=== PATIENT | female | born 1970 | race American Indian/Alaskan Native ===

== ENCOUNTER 2016-10-19 18:23 | Emergency (ER) | payer OTHER ==
[2016-10-19 18:23] VITALS: BMI 22.4
[2016-10-19 18:32] VITALS: BP 127/75; PULSE 65; RESP 18; TEMP 97.5; O2SAT 100
[2016-10-19] MEDS ORDERED: Sodium Chloride 0.9% 1,000 ML IV STA (18:53)
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
[2016-10-19] MEDS ORDERED: Oxycodone/Acetaminophen 5/325 mg Tab ONE (22:15)
[2016-10-19] MEDS ORDERED: Oxycodone/Acetaminophen 5/325 mg Tab PO STA (22:19)
== END 2016-10-19 22:39 | disposition home or self-care (01) ==
LOC: H.ER 18:23
DX: S02.31XA Fracture of orbital floor, right side, initial encounter for closed fracture (principal)

== ENCOUNTER 2017-01-18 15:41 | Emergency (ER) | payer OTHER ==
[2017-01-18 15:41] VITALS: BMI 22.4
[2017-01-18 15:53] VITALS: BP 142/72; PULSE 60; RESP 19; TEMP 96.6; O2SAT 100
--- NOTE | 2017-01-18 16:11 | ED PDOC ---
- ECG O2 Sat by Pulse Oximetry: 100 Disposition - Disposition Forms: [facility] (Solomon Islander)
--- NOTE | 2017-01-18 16:13 | ED PDOC ---
HPI: Psych/Substance Abuse Time Seen by Provider: 01/18/17 15:55 Chief Complaint (Nursing): Anxiety Chief Complaint (Provider): Anxiety History Per: Patient History/Exam Limitations: no limitations Onset/Duration Of Symptoms: Days (x1) Current Symptoms Are (Timing): Still Present Additional Complaint(s): Emelina Zapata is a 46 year old female with previous medical history of anxiety, who presents to the emergency department for a complaint of shortness of breath associated with palpitations, chest pain and sweats ongoing since last night. Patient stated she stopped taking her Xanax 2 weeks ago. Pt' contacted her PMD, Dr. Parks, who advised ED visit. Denied any nausea, vomiting, suicidal or homicidal ideation. PMD: Yogesh Parks MD Past Medical History Reviewed: Historical Data, Nursing Documentation, Vital Signs Vital Signs: Last Vital Signs Temp 96.6 F L 01/18/17 15:51 Pulse 60 01/18/17 15:51 Resp 19 01/18/17 15:51 BP 142/72 01/18/17 15:51 Pulse Ox 100 01/18/17 15:51 - Medical History PMH: Anemia, Anxiety, Depression, GERD, Seizures Denies: Bipolar Disorder, Diabetes, Hepatitis, HIV, HTN, Chronic Kidney Disease, Schizophrenia, Sexually Transmitted Disease - Surgical History Surgical History: Appendectomy, Hernia Repair (left groin), ( x 2) - Family History Family History: States: Unknown Family Hx - Social History Current smoker - smoking cessation education provided: Yes Alcohol: None Drugs: Denies - Home Medications Home Medications: Ambulatory Orders Medication Instructions Recorded Escitalopram [Lexapro] 5 mg PO DAILY #14 tab 06/20/16 clonazePAM [Klonopin] 0.5 mg PO BID #10 tab 06/20/16 Esomeprazole Magnesium [Nexium] 40 mg PO DAILY #15 tab 10/19/16 Meclizine [Antivert] 1 - 2 tab PO Q6 PRN #20 tab 10/19/16 Methylprednisolone [Medrol Dose 4 mg PO DAILY #21 tab 10/19/16 Pack (21 tabs)] Ondansetron [Zofran Odt] 4 mg PO Q8 PRN #10 odt 10/19/16 - Allergies Allergies/Adverse Reactions: Allergies Allergy/AdvReac Type Severity Reaction Status Date / Time ibuprofen Allergy SWELLING Verified 10/19/16 18:25 Review of Systems ROS Statement: Except As Marked, All Systems Reviewed And Found Negative Constitutional: Positive for: Sweats Cardiovascular: Positive for: Chest Pain, Palpitations Respiratory: Positive for: Shortness of Breath Gastrointestinal: Negative for: Nausea, Vomiting Psych: Negative for: Suicidal ideation (or homicidal ideation) Physical Exam - Reviewed Nursing Documentation Reviewed: Yes Vital Signs Reviewed: Yes - Physical Exam Appears: Positive for: Well, Non-toxic, No Acute Distress Head Exam: Positive for: ATRAUMATIC, NORMAL INSPECTION, NORMOCEPHALIC Skin: Positive for: Normal Color, Dry Cardiovascular/Chest: Positive for: Regular Rate, Rhythm Respiratory: Positive for: Normal Breath Sounds. Negative for: Crackles, Rales , Rhonchi, Wheezing, Respiratory Distress Neurologic/Psych: Positive for: Alert, it quality assurance analyst II-XII, Oriented - ECG O2 Sat by Pulse Oximetry: 100 (RA) Pulse Ox Interpretation: Normal Medical Decision Making Medical Decision Making: Initial Impression: Shortness of breath Initial Plan: * EKG * Xanax 0.5mg PO EKG: SB at 53 bpm, no acute ST changes, as read by RAISSA Medicated with 0.5 mg tab Xananx PO Pt denied HI/SI. Declined crisis eval, asking for RX of Xananx. No refills administered at this time. Scribe Attestation: Documented by Danielle Salinas, acting as a scribe for Cindy Lee. Provider Scribe Attestation: All medical record entries made by the Scribe were at my direction and personally dictated by me. I have reviewed the chart and agree that the record accurately reflects my personal performance of the history, physical exam, medical decision making, and the department course for this patient. I have also personally directed, reviewed, and agree with the discharge instructions and disposition. Disposition - Clinical Impression Clinical Impression: Anxiety - Patient ED Disposition Is Patient to be Admitted: No - Disposition Disposition: Routine/Home Disposition Time: 16:24 Condition: STABLE Forms: [facility] (Turkmen) - POA Present On Arrival: None
--- NOTE | 2017-01-19 21:53 | CARD ---
APPROVED REPORT EKG Measurement Heart [id number] <Conclusion> Sinus bradycardia Cannot rule out Anterior infarct, age undetermined Abnormal ECG
== END 2017-01-18 16:33 | disposition home or self-care (01) ==
LOC: H.ER 15:41
DX: F41.9 Anxiety disorder, unspecified (principal); K21.9 Gastro-esophageal reflux disease without esophagitis; F32.9 Major depressive disorder, single episode, unspecified

== ENCOUNTER 2017-12-22 03:15 | Emergency (ER) | payer OTHER ==
[2017-12-22 03:15] VITALS: BMI 22.4
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
[2017-12-22 07:19] VITALS: BP 100/72; PULSE 72; RESP 16; TEMP 97.9; O2SAT 98
--- NOTE | 2017-12-22 10:38 | RAD ---
Date of service: 12/22/2017 PROCEDURE: Cervical Spine Radiographs. HISTORY: Pain. COMPARISON: None. FINDINGS: BONES: There is an accentuated cervical lordotic curvature without fracture or spondylolisthesis identified. No destructive bony lesion identified throughout. Limited multilevel facet joint degenerative arthrosis identified. DISC SPACES: Normal. SOFT TISSUES: Normal. No prevertebral soft tissue swelling. OTHER FINDINGS: None. IMPRESSION: Accentuated lordotic curvature without fracture or spondylolisthesis identified. Limited multilevel facet joint arthrosis appreciated.
--- NOTE | 2017-12-22 10:41 | RAD ---
Date of service: 12/22/2017 HISTORY: fall, pain COMPARISON: No prior. FINDINGS: BONES: Alignment maintained. No fracture. DISC SPACES: Limited multilevel spondylosis appreciated at the mid thoracic spine. Disc interspace heights are adequately preserved throughout. SOFT TISSUES: Unremarkable. OTHER FINDINGS: None. IMPRESSION: Limited multilevel thoracic spondylosis without fracture or spondylolisthesis appreciable.
--- NOTE | 2017-12-22 10:42 | RAD ---
Date of service: 12/22/2017 PROCEDURE: Radiographs of the Lumbar Spine. HISTORY: fall, pain COMPARISON: No prior. FINDINGS: BONES: Normal alignment. No listhesis. No fracture. DISC SPACES: Unremarkable. OTHER FINDINGS: None. IMPRESSION: Unremarkable radiographs of the lumbar spine.
--- NOTE | 2017-12-22 10:45 | RAD ---
Date of service: 12/22/2017 PROCEDURE: BILATERAL ANKLE RADIOGRAPHS HISTORY: fall, pain COMPARISON: Left ankle radiographs 02/09/2012. TECHNIQUE: Three views of each ankle and submitted for interpretation. FINDINGS: No acute fracture or dislocation is identified bilaterally. There is no destructive bony lesion identified bilaterally either. The bilateral ankle mortise ease are intact. The talar domes appear normal bilaterally and there is no suspicious soft tissue finding bilaterally. IMPRESSION: Unremarkable bilateral ankle radiograph series. Left ankle appears stable in the interval compared 02/09/2012, with no prior right ankle radiographs available for comparison.
--- NOTE | 2017-12-22 10:48 | RAD ---
PROCEDURE: Bilateral hand radiographs. HISTORY: fall, pain COMPARISON: Left hand radiographs 02/07/2014 and right hand radiographs dated 10/04/2014. FINDINGS: BONES: No acute fracture or destructive bony lesion identified at the left or right hand. JOINTS: No subluxation or dislocation is appreciated throughout the joints of both hands. SOFT TISSUES: Right Hand: Normal. Left Hand: Normal. OTHER FINDINGS: None. IMPRESSION: Unremarkable lateral hand radiographs without significant interval change as compared prior radiographs noted above.
== END 2017-12-22 07:30 | disposition home or self-care (01) ==
LOC: H.ER 03:15
DX: M54.2 Cervicalgia (principal); M54.9 Dorsalgia, unspecified; M79.642 Pain in left hand; M79.641 Pain in right hand; M25.571 Pain in right ankle and joints of right foot; M25.572 Pain in left ankle and joints of left foot; F32.9 Major depressive disorder, single episode, unspecified; Z00.8 Encounter for other general examination; I10 Essential (primary) hypertension; Z82.3 Family history of stroke

== ENCOUNTER 2018-04-18 15:00 | Emergency (ER) | payer OTHER, MEDICAID ==
[2018-04-18 15:00] VITALS: BMI 22.4
[2018-04-18 15:14] VITALS: BP 145/81; PULSE 62; RESP 18; TEMP 97.7; O2SAT 99
--- NOTE | 2018-04-18 15:48 | ED PDOC ---
HPI: Psych/Substance Abuse Time Seen by Provider: 04/18/18 15:20 Chief Complaint (Nursing): Psychiatric Evaluation Chief Complaint (Provider): Psychiatric Evaluation History Per: Patient History/Exam Limitations: no limitations Additional Complaint(s): 47 year old female presents to ED for evaluation of depression and suicidal thoughts. She reports she was living with grandfather who recently passed and now has lost her home. Patient is staying with her mother, who she states is dying from cancer. Patient states she wanted to jump off the [employer] yesterday as she "doesn't want to live anymore" and that her aunt is "trying to take everything away". LMP: no longer has menses. PCP: Dr. Cyndie Pang Past Medical History Reviewed: Historical Data, Nursing Documentation, Vital Signs Vital Signs: Last Vital Signs Temp 97.7 F 04/18/18 15:11 Pulse 62 04/18/18 15:11 Resp 18 04/18/18 15:11 BP 145/81 04/18/18 15:11 Pulse Ox 99 04/18/18 15:11 - Medical History PMH: Anemia, Anxiety, Depression, GERD, HTN, Seizures - Surgical History Surgical History: Appendectomy, Hernia Repair (left groin), ( x 2) Other surgeries: hysterectomy - Family History Family History: States: Unknown Family Hx - Home Medications Home Medications: Ambulatory Orders Medication Instructions Recorded RX: Escitalopram [Lexapro] 5 mg PO DAILY #14 tab 06/20/16 RX: clonazePAM [Klonopin] 0.5 mg PO BID #10 tab 06/20/16 Esomeprazole Magnesium [Nexium] 40 mg PO DAILY #15 tab 10/19/16 Meclizine [Antivert] 1 - 2 tab PO Q6 PRN #20 tab 10/19/16 Methylprednisolone [Medrol Dose 4 mg PO DAILY #21 tab 10/19/16 Pack (21 tabs)] Ondansetron [Zofran Odt] 4 mg PO Q8 PRN #10 odt 10/19/16 RX: Acetaminophen [Pain Reliever] 500 mg PO Q4 #30 tablet 12/22/17 - Allergies Allergies/Adverse Reactions: Allergies Allergy/AdvReac Type Severity Reaction Status Date / Time ibuprofen Allergy SWELLING Verified 12/22/17 03:30 Review of Systems ROS Statement: Except As Marked, All Systems Reviewed And Found Negative Psych: Positive for: Depression, Suicidal ideation Physical Exam - Reviewed Nursing Documentation Reviewed: Yes Vital Signs Reviewed: Yes - Physical Exam Comments: GENERAL APPEARANCE: Patient is awake, alert, oriented x 3, in no acute distress. NECK: Supple, FROM ENT: Mucus membranes moist. Airway patent, (-) stridor. HEART AND CARDIOVASCULAR: (-) irregularity CHEST AND RESPIRATORY: (-) rales, (-) rhonchi, (-) wheezes; breath sounds equal. Respirations even and nonlabored. ABDOMEN: Soft, (-) distention, (-) tenderness, (-) guarding. NEURO AND PSYCH: Mental status as above. Affect: flat, tearful. (-) facial asymmetry; Gait: steady. Speech: clear. - ECG O2 Sat by Pulse Oximetry: 99 (RA) Pulse Ox Interpretation: Normal Medical Decision Making Medical Decision Making: Initial Impression: Psychiatric evaluation Initial Plan: * Crisis evaluation * 1:1 OBS 1645 Per crisis evaluation, patient to be discharged with the diagnosis of adjustment disorder per Dr Saunders. On exam, patient remains AAOx3, in no acute distress.Vitals stable. Lab/Diagnostic results d/w the patient in great detail. Diagnosis of adjustment disorder d/w the patient. Based on history, exam and diagnostic results, plan will be for outpatient follow up as directed by crisis. Patient instructed to follow-up with pmd / referral provided / the clinic in 1- 2 days without fail. Return to the emergency room at any time for any new or worsening symptoms. Verbalized and repeated discharge instructions and plan. I have given the patient opportunity to ask any additional questions. Scribe Attestation: Documented by Danielle Salinas, acting as a scribe for Rachael Dhillon PA-C. Provider Scribe Attestation: All medical record entries made by the Scribe were at my direction and personally dictated by me. I have reviewed the chart and agree that the record accurately reflects my personal performance of the history, physical exam, medical decision making, and the department course for this patient. I have also personally directed, reviewed, and agree with the discharge instructions and disposition. Disposition - Clinical Impression Clinical Impression: Adjustment disorder - Patient ED Disposition Is Patient to be Admitted: No Counseled Patient/Family Regarding: Studies Performed, Diagnosis, Need For Fo llowup - Disposition Referrals: [facility] [Outside] Disposition: Routine/Home Disposition Time: 16:45 Condition: FAIR Additional Instructions: The emergency medical care you received today was directed at your acute symptoms. If you were prescribed any medication, please fill it and take as directed. It may take several days for your symptoms to resolve. Return to the Emergency Department if your symptoms worsen, do not improve, or if you have any other problems. Please contact your doctor in 2 days for re-evaluation and follow up / or call one of the physicians/clinics you have been referred to that are listed on the Patient Visit Information form that is included in your discharge packet. Bring any paperwork you were given at discharge with you along with any medications you are taking to your follow up visit. Our treatment cannot replace ongoing medical care by a primary care provider (PCP) outside of the emergency department. Instructions: Adjustment Disorder Forms: [employer] (Citizen [place]) Print Language: FINNISH - POA Present On Arrival: None
== END 2018-04-18 17:06 | disposition home or self-care (01) ==
LOC: H.ER 15:00
DX: F43.20 Adjustment disorder, unspecified (principal); F32.9 Major depressive disorder, single episode, unspecified; I10 Essential (primary) hypertension

== ENCOUNTER 2018-09-17 08:32 | Emergency (ER) | payer OTHER ==
[2018-09-17 08:35] VITALS: BMI 26.6
[2018-09-17 08:37] VITALS: BP 118/85; PULSE 61; RESP 20; TEMP 98.3; O2SAT 100
--- NOTE | 2018-09-17 10:04 | ED PDOC ---
HPI: Psych/Substance Abuse Time Seen by Provider: 09/17/18 08:49 Chief Complaint (Nursing): Anxiety Chief Complaint (Provider): Anxiety History Per: Patient History/Exam Limitations: no limitations Onset/Duration Of Symptoms: Days Current Symptoms Are (Timing): Still Present Associated Symptoms: denies: Suicidal Thoughts Additional Complaint(s): 47 year old female with a past medical history of hypertension and anxiety who is presenting to the ED for evaluation of anxiety worsening for a few days. Patient states that she has had anxiety for about 3 years for which she takes 0.5 mg of Xanax 3 times a day, prescribed by Dr. Pang. She admits that she ran out of medications 2 days ago and has been unable to fill the presc ription. Patient states that she feels itchy, anxious, and admits feeling shortness of breath and palpitations. She reports having similar symptoms in the past when she didnt take medications and she denies any suicidal or homicidal ideation. PMD: Dr. Pang Past Medical History Reviewed: Historical Data, Nursing Documentation, Vital Signs Vital Signs: Last Vital Signs Temp 98.3 F 09/17/18 08:35 Pulse 61 09/17/18 08:35 Resp 20 09/17/18 08:35 BP 118/85 09/17/18 08:35 Pulse Ox 100 09/17/18 08:35 Primary Care Physician: Remington Pang - Medical History PMH: Anemia, Anxiety, Depression, GERD, HTN, Seizures (silent seizure takes neurotin) Denies: Bipolar Disorder, Diabetes, Hepatitis, HIV, Chronic Kidney Disease, Schizophrenia, Sexually Transmitted Disease - Surgical History Surgical History: Appendectomy, Hernia Repair (left groin), ( x 2) - Family History Family History: States: Unknown Family Hx - Social History Current smoker - smoking cessation education provided: Yes Alcohol: None Drugs: Denies - Immunization History Hx Tetanus Toxoid Vaccination: Yes Hx Influenza Vaccination: No Hx Pneumococcal Vaccination: No - Home Medications Home Medications: Ambulatory Orders Medication Instructions Recorded Alprazolam [Xanax] 0.5 mg PO BID 05/13/18 Furosemide [Lasix] 20 mg PO DAILY 05/13/18 Gabapentin [Neurontin] 300 mg PO TID #90 cap 05/17/18 Sertraline [Zoloft] 50 mg PO DAILY #30 tab 05/17/18 hydrOXYzine HCl [Atarax] 25 mg PO BID 14 Days #28 tab 05/17/18 traZODone [Desyrel] 50 mg PO HS PRN #30 tab 05/17/18 - Allergies Allergies/Adverse Reactions: Allergies Allergy/AdvReac Type Severity Reaction Status Date / Time ibuprofen Allergy SWELLING Verified 05/17/18 23:28 Review of Systems ROS Statement: Except As Marked, All Systems Reviewed And Found Negative Constitutional: Positive for: Other (itchy ) Cardiovascular: Positive for: Palpitations Respiratory: Positive for: Shortness of Breath Psych: Positive for: Anxiety. Negative for: Suicidal ideation, Other (homicidal ideation ) Physical Exam - Reviewed Nursing Documentation Reviewed: Yes Vital Signs Reviewed: Yes - Physical Exam Appears: Positive for: Non-toxic, No Acute Distress Head Exam: Positive for: ATRAUMATIC, NORMAL INSPECTION, NORMOCEPHALIC Skin: Positive for: Normal Color, Warm, DRY Eye Exam: Positive for: EOMI, Normal appearance, PERRL ENT: Positive for: Normal ENT Inspection Neck: Positive for: Normal, Painless ROM Cardiovascular/Chest: Positive for: Regular Rate, Rhythm. Negative for: Murmur Respiratory: Positive for: Normal Breath Sounds. Negative for: Respiratory Distress Gastrointestinal/Abdominal: Positive for: Normal Exam, Soft. Negative for: Tenderness Back: Positive for: Normal Inspection. Negative for: L CVA Tenderness, R CVA Tenderness, Vertebral Tenderness Extremity: Positive for: Normal ROM. Negative for: Deformity, Swelling Neurological/Psych: Positive for: Awake, Alert, Normal Tone, Oriented. Negative for: Motor/Sensory Deficits - ECG O2 Sat by Pulse Oximetry: 100 (RA) Pulse Ox Interpretation: Normal Medical Decision Making Medical Decision Making: Time: 9:27 Impression: 47 year old female with acute anxiety and likely benzodiazepine dependence --Counseled as to side effects of continued usage of benzodiazepines --1 dose of Xanax given in ED 10:35 Patient was evaluated by crisis who arranged an earlier appointment for her. She is medically and psychiatrically stable for discharge. Scribe Attestation: Documented by Kailee Dc, acting as a scribe for Rito Chin MD. Provider Scribe Attestation: All medical record entries made by the Scribe were at my direction and personally dictated by me. I have reviewed the chart and agree that the record accurately reflects my personal performance of the history, physical exam, medical decision making, and the department course for this patient. I have also personally directed, reviewed, and agree with the discharge instructions and disposition. Disposition - Clinical Impression Clinical Impression: Anxiety - Patient ED Disposition Is Patient to be Admitted: No - Disposition Referrals: [facility] [Outside] Remington Pang MD [Primary Care Provider] - Disposition: Routine/Home Disposition Time: 10:37 Condition: STABLE Instructions: Anxiety, Adult (DC) Forms: [employer] (Gambian)
== END 2018-09-17 10:38 | disposition home or self-care (01) ==
LOC: H.ER 08:32 → SUPCPDRO 08:32 → H.ER 10:38
DX: F41.9 Anxiety disorder, unspecified (principal)